=== PATIENT | male | born 1970 | race Caucasian/White ===

== ENCOUNTER 2017-12-16 20:23 | Emergency (ER) | payer BC ==
--- NOTE | 2017-12-16 22:06 | EDPHY ---
H & P Time Seen by Provider: 12/16/17 20:35 HPI/ROS: CC: short of breath HPI: This 46-year-old male presents to emergency department tonight with a prescription for a chest x-ray from his primary care provider. He states he had strep a couple of weeks ago and was treated with amoxicillin. He subsequently caught an upper respiratory infection from someone he worked with. He had congestion and a cough as well as wheezing. His primary prescribed a Z -Harrison and an albuterol inhaler. He has also been using his 's nebulizer. He thinks he may have exercise-induced asthma underlying the current illness. His primary care provider wanted him to have an outpatient chest x-ray but he was worried about the continued shortness of breath He finished the Z-Harrison yesterday. REVIEW OF SYSTEMS: Constitutional: No fever, no chills. Eyes: No discharge. ENT: No sore throat. Respiratory: See HPI Cardiac: No chest pain, no palpitations. Gastrointestinal: No abdominal pain, no vomiting. Genitourinary: No hematuria. Musculoskeletal: No back pain. Skin: No rashes. Neurological: No headache. Past Medical/Surgical History: PMH: Shoulder dislocations PSH: Femur Fx NKDA Meds: Just finished Z-Harrison; Has Albuterol MDI PCP: Shania johns [place] Smoking Status: Never smoked Physical Exam: General Appearance: Alert, no distress. Eyes: Pupils equal and round no pallor or injection. ENT, Mouth: Mucous membranes are moist. Respiratory: There are no retractions, lungs with scant expiratory wheeze. Cardiovascular: Regular rate and rhythm. Gastrointestinal: Abdomen is soft and nontender, no masses, bowel sounds normal. Neurological: Awake and alert, sensory and motor exams grossly normal. Skin: Warm and dry, no rashes. Musculoskeletal: Neck is supple nontender. Extremities are symmetrical, full range of motion. Psychiatric: Patient is oriented X 3, there is no agitation. DIFFERENTIAL DIAGNOSIS: After history and physical exam differential diagnosis was considered for but not limited to: URI, Reactive airway disease, bronchitis , pneumonia, unlikely PE Constitutional: Initial Vital Signs Temperature (C) 97.9 F 12/16/17 20:25 Heart Rate 80 12/16/17 20:25 Respiratory Rate 18 12/16/17 20:25 Blood Pressure 126/98 H 12/16/17 20:25 O2 Sat (%) 98 12/16/17 20:25 O2 Delivery Mode Room Air Allergies/Adverse Reactions: No Known Allergies Allergy (Verified 12/16/17 20:43) Home Medications: Medication Instructions Recorded NO HOME MEDS 12/04/13 predniSONE 20 mg PO BID #14 tablet 12/16/17 Medical Decision Making - Diagnostics Imaging Results: Two view chest x-ray negative Imaging: Discussed imaging studies w/ call center professional Radiologist ED Course/Re-evaluation: The patient was seen and examined, vital signs reviewed. Chest x-ray was negative. The patient is reassured by this. He will be given a short course of prednisone. He is to continue using his inhaler. He should talk to his primary care provider about pulmonary function tests or other imaging studies as clinically indicated. He will follow up with his primary care provider this coming week or return to the emergency room sooner if symptoms change or worsen. - Data Points Medications Given: Discontinued Medications Prednisone (Prednisone) 60 mg PO EDNOW ONE Stop: 12/16/17 22:08 Last Admin: 12/16/17 22:16 Dose: 60 mg Departure - Departure Disposition: Home, Routine, Self-Care Clinical Impression: Bronchitis Condition: Good Instructions: Prednisone (By mouth), Acute Bronchitis (ED), Pulmonary Function Tests (DC) Additional Instructions: Follow up with your doctor next week. Let her know if the prednisone seemed to help. Continue the Albuterol Inhaler as directed. If symptoms persist, you may need further imaging and/or pulmonary function tests. Return to the ER if symptoms change or worsen. Referrals: Shania Pulido [Primary Care Provider] - 5-7 days, call for appt. Prescriptions: predniSONE 20 mg PO BID #14 tablet
[2017-12-16] MEDS ORDERED: predniSONE 20 MG TAB PO ONE (22:07)
[2017-12-16 22:09] VITALS: BP 141/100; PULSE 79; RESP 16; TEMP 98.1; O2SAT 95
== END 2017-12-16 22:18 | disposition home or self-care (01) ==
LOC: CED 20:23
DX: J40 Bronchitis, not specified as acute or chronic (principal)
CPT/HCPCS: 71046-PO; J7512